=== PATIENT | male | born 1970 | race Caucasian/White ===

== ENCOUNTER 2020-08-15 06:22 | Day surgery (SDC) | payer OTHER ==
[2020-08-10 11:21] LABS: Basophils % 1.4 % (0-1.3); Hematocrit 46.3 % (39.6-49.0); Lymphocytes % 18.5 % (15.3-44.8); MPV 6.8 fL (7.6-11.3); RBC Red Blood Cell Count 5.11 M/uL (4.33-5.43)
[2020-08-15] MEDS ORDERED: CEFAZOLIN/SWI 2gm 2 GM/20 ML SYR ONE (07:03)
[2020-08-15] MEDS ORDERED: Ringers Lactate 1,000 ML IV ONE ×2 (07:03→08:53)
[2020-08-15] MEDS ORDERED: propofoL 200 MG/20 ML VIAL IV ONE ×5 (07:25→08:45)
[2020-08-15] MEDS ORDERED: KETOROLAC 30 MG/ML INJ ONE (07:25)
[2020-08-15] MEDS ORDERED: dexAMETHasone 10 MG/ML VIAL ONE (07:25)
[2020-08-15] MEDS ORDERED: MIDAZOLAM HCL 2 MG/2 ML INJ ONE (07:25)
[2020-08-15] MEDS ORDERED: FENTANYL CITR 100 MCG/2 ML ONE (07:25)
[2020-08-15] MEDS ORDERED: ONDANSETRON 4 MG/2 ML VIAL ONE (07:26)
[2020-08-15] MEDS ORDERED: LIDOCAINE 2% MPF 5 ML VIAL ONE (07:26)
[2020-08-15 07:42] VITALS: TEMP 97.2
[2020-08-15] MEDS ORDERED: BUPIVACAINE 0.25% PF 10 ML VIAL ONE (07:46)
[2020-08-15] MEDS ORDERED: LIDOCAINE 1% MPF 30 ML VIAL ONE (07:46)
[2020-08-15] MEDS ORDERED: BACITRACIN OINTMENT 15 GM TUBE TOP ONE (08:30)
[2020-08-15 09:18] VITALS: BP 172/92; O2SAT 99
--- NOTE | 2020-08-15 11:50 | OP ---
Surgeon: MAGGY MENDES Preoperative Diagnosis: Paraphimosis and posthitis. Postoperative Diagnosis: Paraphimosis and posthitis. Principal Procedures: Sleeve circumcision, penile block. Indictation For Procedure: This is a 50-year-old gentleman, who presented with complaints of tightne ss of the foreskin, wants retracted, and occasional irritation of the foreskin and glans. He desired operative circumcision to deal with both of those issues. Procedure In Detail: The patient was consented in the preoperative holding area before being transfe rred to the operative suite where sedation was induced and a penile block was applied. His genitalia were then prepped using Betadine and draped in standard fashion. Using a mixture of 0.5% Marcaine a nd 1% lidocaine, 30 cc was instilled in the infrapubic region and in the region of the neurovascular bundles in total to complete the penile block. Once the block had an opportunity to set up, I then d elineated a region within the shaft skin at the patel of the glans and an additional circumferential leading an approximately 1-1.5 cm coronal margin of the foreskin and excised the intervening tissues . The patient required an additional 3 cc of the mixture of Marcaine and lidocaine as a frenular blo ck, but after that, he tolerated the procedure well. Once the foreskin had been circumferentially in cised, it was divided in the anterior midline and then removed along with its dartos attachments usin g Bovie electrocautery. I then performed a careful search for bleeding using Adson forceps and elect rocautery to pinpoint fulgurate any anal oozing vessels within the dartos to ensure adequate hemostas is. Once this had been performed, copious irrigation was then performed and any additional bleeding vessels revealed at that time were pinpoint fulgurated in a bipolar fashion. I then reapproximated t he preputial margin with the shaft skin in a quadrant fashion using 3-0 chromic dipped in Bacitracin and then performed a running horizontal mattress suture to approximate the skin in between the quadra nts. In the end, the cosmetic results were excellent, and his genitalia was washed free of the Betad ine. I then applied Bacitracin around the incision line and to the glans and applied a cream and Cob an as a gentle pressure dressing. The patient was then awakened from anesthesia, transferred to the stretcher, and then transferred to the recovery room in good condition. Complications: None. Disposition: I instructed the patient as well as his that the pressure dressing would remain on as long as it would stay on through the night if possible, but that if it hurts or feels too tight, he should remove it. If it remains on successfully through the night, they can remove it tomorrow mo rning. I then instructed they should apply Neosporin to the glans and around the incision line twice a day and that he may shower, but avoid any tub baths, pools or hot tubs. Follow up will be establi shed in the [facility] in 1-2 weeks for interval assessment. BARBIE Voice ID: [id number] Report ID: [id number]
== END 2020-08-15 09:36 | disposition home or self-care (01) ==
LOC: OR 06:22
PROVIDERS: ATTEND Urology
PROC: 0VTTXZZ Resection of Prepuce, External Approach (ICD-10-PCS; principal; 2020-08-15 07:30)
DX: N47.2 Paraphimosis (principal); N47.7 Other inflammatory diseases of prepuce; E29.1 Testicular hypofunction; E03.9 Hypothyroidism, unspecified; F90.9 Attention-deficit hyperactivity disorder, unspecified type; F17.200 Nicotine dependence, unspecified, uncomplicated; Z20.828 Contact with and (suspected) exposure to other viral communicable diseases; Z98.52 Vasectomy status; Z98.84 Bariatric surgery status; Z88.6 Allergy status to analgesic agent; Z82.49 Family history of ischemic heart disease and other diseases of the circulatory system; Z82.3 Family history of stroke
CPT/HCPCS: 93005; 85025; 80048; 36415; 88304; 54161; J2704 ×4; J2250; J3010; J1100; J0690; J7120 ×2; J2405